=== PATIENT | male | born 2000 | race African-American/Black ===

== ENCOUNTER 2024-07-31 15:06 | Emergency (ER) | payer OTHER ==
[~2024-07-31] VITALS: Ht 170.2 cm; Wt 68.0 kg
[2024-07-31 15:17] VITALS: BP 134/90; PULSE 88; RESP 16; O2SAT 98
[2024-07-31] MEDS ORDERED: CEPH500C2 MT (15:56)
[2024-07-31] MEDS: TETANUS, DIPHTHERIA, PERTUSSIS VAC/PF 0.5ML (>10YR OLD) IM ONE (16:02)
== END 2024-07-31 16:11 ==
LOC: ER 15:06
DX: S61.411A Laceration without foreign body of right hand, initial encounter (principal); W18.39XA Other fall on same level, initial encounter; Y93.89 Activity, other specified; Y92.89 Other specified places as the place of occurrence of the external cause; Y99.8 Other external cause status
CPT/HCPCS: 90471; 90715; 99283